=== PATIENT | female | born 1965 | race Caucasian/White ===

== ENCOUNTER 2019-12-31 13:15 | Outpatient (REF) | payer OTHER, SELFPAY ==
[2019-12-31 13:42] LABS: COVID-19 Test Negative (Negative)
== END 2019-12-31 13:16 | disposition home or self-care (01) ==
LOC: HO.LAB 13:15
PROVIDERS: PCP Family Medicine; Visit Provider Internal Medicine
DX: Z20.828 Contact with and (suspected) exposure to other viral communicable diseases (principal)
CPT/HCPCS: 87635

== ENCOUNTER 2020-01-30 17:41 | Emergency (ER) | payer OTHER, SELFPAY ==
--- NOTE | 2020-01-30 17:44 | ECG_ITS ---
Test Reason : CHEST PAIN Blood Pressure : / mmHG Vent. Rate : 079 BPM Atrial Rate : 079 BPM P-R Int : 156 ms QRS Dur : 080 ms QT Int : 380 ms P-R-T Axes : 068 053 069 degrees QTc Int : 435 ms Normal sinus rhythm Normal ECG When compared with ECG of 01-JUN-2005 17:38, No significant change was found Heart rate has increased Referred By: Generic ED Physician Electronically Signed By:KIMI HONG MD
[2020-01-30 18:59] VITALS: BP 144/91; PULSE 75; RESP 18; TEMP 37.9; O2SAT 100; BMI 23.5
[2020-01-30 20:44] VITALS: BP 187/96; PULSE 74; RESP 16; O2SAT 100
--- NOTE | 2020-01-30 20:44 | ED.ARRPALP ---
HPI - Arrhythmia/Palpitations General Chief Complaint: Arrhythmia/Palpitations Stated Complaint: Palpitations Time Seen by Provider: 01/30/20 20:25 Source: patient Mode of arrival: ambulatory Limitations: no limitations History of Present Illness HPI narrative: Patient comes to emergency room complaining of palpitations, chest discomfort, intermittent. Patient states that she history of palpitations in the past, they usually self resolved, but the moment she is not having the palpitations. Patient states that 1 of her coworkers recently tested positive for COVID-19, patient has been in close contact with her colleague. Patient states she does not feel right. Related Data Allergies Allergy/AdvReac Type Severity Reaction Status Date / Time Penicillins Allergy Anaphylaxis Verified 01/30/20 20:44 Review of Systems Review of Systems: Constitutional : No Weight loss, No Fever, No Chills, No Night Sweats, No Fatigue, No Malaise ENT/Mouth : No Hearing loss, No Ear Pain, No Nasal Congestion, No Sinus Pain, No Hoarseness, No sore throat, No Rhinorrhea, No Swallowing Difficulty Eyes: No Eye Pain, No Swelling, No Redness, No Foreign Body, No Discharge, No Vision Changes Cardiovascular : No Chest Pain, no orthopnea, no edema, patient complaining of palpitations Respiratory : No Cough, No Sputum, No Wheezing, No Smoke Exposure, No Dyspnea Gastrointestinal : No Nausea, No Vomiting, No Diarrhea, No Constipation, No abdominal Pain, No Hematochezia, No Melena Genitourinary : no irregular bleeding, No Dysuria, No Urinary Frequency, No Hematuria, No Urinary Incontinence, No Urgency, No Flank Pain, No Urinary Flow Changes, No Hesitancy Musculoskeletal : No joint pain, No Myalgias, No Joint Swelling Skin : No Skin Lesions, No rash Neuro : No Weakness, No Numbness, No Paresthesias, No Loss of Consciousness, No Dizziness, No Headache Psych : No Anxiety/Panic, No Depression, No SI/HI/AH/VH, No Social Issues, Heme/Lymph: No Bruising, No Bleeding,No Lymphadenopathy Endocrine : No Polyuria, No Polydipsia, No Temperature Intolerance [facility] Social History Social History Smoking Status: Never smoker Use of substances other than those prescribed or required for medical reasons: No Advance Directives: No Advance Directives Information Provided: Yes Physical Exam Vital Signs: Vital Signs: Last Vital Signs Temp 100.2 F 01/30/20 18:59 Pulse 74 01/30/20 20:44 Resp 16 01/30/20 20:44 BP 187/96 H 01/30/20 20:44 Pulse Ox 100 01/30/20 20:44 Body Mass Index 23.5 Appearance: Alert. Oriented X3. No acute distress. Eyes: Pupils equal, round and reactive to light. ENT: Pharynx normal. Neck: Normal inspection. Neck supple. No lymph nodes noted. No crepitus CVS: Normal heart rate and rhythm. Pulses normal. Normal S1 and S2 Respiratory: No respiratory distress. Breath sounds normal. No Wheezing. No rales Abdomen: Soft and nontender. No rigidity. No distention. good BS x4 Skin: Skin warm and dry. Normal skin color. Normal skin turgor. Extremities: No lower extremity edema. No lower extremity edema. No Lacerations. No Rash Neuro: Oriented X 3. No motor deficit. No sensory deficit. Moving all extermities. No slurred speech. Course Course Course Narrative: I discussed the labs and EKG with the patient, patient will likely need a Holter monitor if she if she continues having palpitations. Patient was tested for COVID-19, results will be available within 72 hours MDM - Arrhythmia/Palpitations Lab Data Result diagrams: 01/30/20 20:57 01/30/20 20:57 Labs: Lab Results 01/30/20 01/30/20 01/30/20 Range/Units 20:57 20:57 20:57 WBC 8.9 (4.8-10.8) X10*3/uL RBC 4.18 L (4.20-5.50) X10*6/uL Hgb 13.1 (12.0-16.0) g/dl Hct 38.6 (37-47) % MCV 92.3 (80-98) fL MCH 31.3 (27.0-33.0) pg MCHC 33.9 (31.0-35.0) g/dl RDW 12.7 (11.0-16.0) % Plt Count 239 (160-400) X10*3/uL MPV 10.3 (9.4-12.3) fL Immature Gran % (Auto) 0.2 (0.0-0.4) % Neut % (Auto) 59.6 (45-73) % Lymph % (Auto) 28.0 (20-40) % Hopkins % (Auto) 6.9 (2-11) % Eos % (Auto) 4.6 H (0-4) % Baso % (Auto) 0.7 (0-2) % Lymph # (Auto) 2.5 (1.2-4.9) X10*3/uL Hopkins # (Auto) 0.6 (0.1-1.2) X10*3/uL Eos # (Auto) 0.4 (0.0-0.4) X10*3/uL Baso # (Auto) 0.1 (0.0-0.2) X10*3/uL Abs Immat Gran (auto) 0.02 (0.00-0.03) X10*3/uL Absolute Neuts (auto) 5.3 (2.0-8.3) X10*3/uL Absolute Nucleated RBC 0.000 (0.0-0.012) X10*3/uL Nucleated RBC % (auto) 0.0 (0.0-0.2) /100WBC Sodium 140 (135-145) mmol/L Potassium 3.6 (3.3-5.1) mmol/l Chloride 103 (96-108) mmol/L Carbon Dioxide 29 (22-29) mmol/L Anion Gap 12 (12-20) BUN 14 (9-16) mg/dL Creatinine 0.89 (0.5-1.4) mg/dL Estim Creat Clear Calc 71.8 Estimated GFR > 60 Random Glucose 78 (60-115) mg/dL Calcium 8.8 (8.4-10.2) mg/dL Total Bilirubin 0.6 (0.0-1.0) mg/dL Direct Bilirubin 0.2 (0.0-0.5) mg/dL AST 32 H (5-31) U/L ALT 29 (0-31) U/L Alkaline Phosphatase 86 (39-117) U/L Troponin I High Sens < 3.5 (<3.5-17.0) ng/L Total Protein 7.7 (6.5-8.0) g/dL Albumin 4.6 (3.5-5.0) g/dL TSH 2.27 (0.32-4.0) mIU/mL ECG Data Attestation: I personally reviewed and interpreted this ECG as follows: (Sinus rhythm heart rate 79, no ST wave elevations or depressions, no T-wave inversions, QTC 135) Discharge Plan Discharge Clinical Impression: Palpitations, Acute viral syndrome Patient Disposition: Home, Self-Care Instructions: Viral Syndrome (ED), Heart Palpitations (ED) Additional Instructions: Please follow-up with your primary care physician, you may need a Holter monitor study. You were tested for COVID-19, your results will be available within 72 hours, until you get your lab results, please to not return to work.
[2020-01-30 21:04] LABS: MANUAL DIFF FLAG NO
[2020-01-30 21:05] LABS: Basophils Absolute Auto 0.1 X10*3/uL (0.0-0.2); Basophils Percent Auto 0.7 % (0-2); Eosinophils Absolute Auto 0.4 X10*3/uL (0.0-0.4); Eosinophils Percent Auto 4.6 % (0-4); Hematocrit 38.6 % (37-47); Hemoglobin 13.1 g/dl (12.0-16.0); Imm Gran Abs Auto 0.02 X10*3/uL (0.00-0.03); Imm Gran Pct Auto 0.2 % (0.0-0.4); Lymphocytes Absolute Auto 2.5 X10*3/uL (1.2-4.9); Mean Corpuscular HGB Conc 33.9 g/dl (31.0-35.0); Mean Corpuscular Hemoglobin 31.3 pg (27.0-33.0); Mean Corpuscular Volume 92.3 fL (80-98); Mean Platelet Volume 10.3 fL (9.4-12.3); Monocytes Absolute Auto 0.6 X10*3/uL (0.1-1.2); Monocytes Percent Auto 6.9 % (2-11); Neutrophils Absolute Auto 5.3 X10*3/uL (2.0-8.3); Neutrophils Percent Auto 59.6 % (45-73); Platelet Count 239 X10*3/uL (160-400); Red Blood Count 4.18 X10*6/uL (4.20-5.50); Red Cell Distribution Width 12.7 % (11.0-16.0); White Blood Count 8.9 X10*3/uL (4.8-10.8)
[2020-01-30 21:37] LABS: Alanine Aminotransferase 29 U/L (0-31); Albumin Level 4.6 g/dL (3.5-5.0); Alkaline Phosphatase 86 U/L (39-117); Anion Gap 12 (12-20); Aspartate Amino Transferase 32 U/L (5-31); Bilirubin Direct 0.2 mg/dL (0.0-0.5); Bilirubin Total 0.6 mg/dL (0.0-1.0); Blood Urea Nitrogen 14 mg/dL (9-16); Calcium 8.8 mg/dL (8.4-10.2); Carbon Dioxide 29 mmol/L (22-29); Chloride 103 mmol/L (96-108); Creatinine Clr Calc Pharmacy 71.8; Estimated Glomerular Filt Rate > 60; Glucose Random 78 mg/dL (60-115); Potassium 3.6 mmol/l (3.3-5.1); Sodium 140 mmol/L (135-145); Total Protein 7.7 g/dL (6.5-8.0)
[2020-01-30 21:40] LABS: Troponin-I High Sensitivity < 3.5 ng/L (<3.5-17.0)
[2020-01-30 21:59] LABS: TSH reflex Free T4 2.27 mIU/mL (0.32-4.0)
== END 2020-01-30 23:04 | disposition home or self-care (01) ==
PROVIDERS: Emergency Provider Emergency Medicine; PCP Family Medicine
DX: B34.9 Viral infection, unspecified (principal); R00.2 Palpitations; Z20.828 Contact with and (suspected) exposure to other viral communicable diseases
CPT/HCPCS: 36415; 80048; 80076; 84443; 84484; 85025; 93005; 99283; 99284; U0003

== ENCOUNTER 2020-02-03 07:31 | Outpatient (REF) | payer OTHER, SELFPAY | END 2020-02-03 07:32 | disposition home or self-care (01) | LOC: HO.LAB 07:31 | PROVIDERS: PCP Family Medicine; Visit Provider Internal Medicine | DX: Z20.828 Contact with and (suspected) exposure to other viral communicable diseases (principal) | CPT/HCPCS: C9803; U0003 ==

== ENCOUNTER 2020-06-06 14:03 | Emergency (ER) | payer OTHER, SELFPAY ==
--- NOTE | ~2020-06-06 | XR_ITS ---
EXAMINATION: XR FOOT, RIGHT CLINICAL INFORMATION: Wound of the right great toe. Evaluate for osteomyelitis. COMPARISON: None TECHNIQUE: AP, lateral, and oblique views of the right foot. FINDINGS: There is no fracture or dislocation. Alignment is anatomic. Joint spaces are maintained. No osseous erosions. No focal soft tissue abnormality identified. No soft tissue gas. No radiopaque foreign body. XR/XR foot RT min 3V IMPRESSION: No acute abnormality. No osseous erosion.
[2020-06-06 14:12] VITALS: BP 140/70; PULSE 80; RESP 18; TEMP 36.6; O2SAT 100; BMI 23.5
--- NOTE | 2020-06-06 14:36 | ED.GENADULT ---
HPI - General Adult General Chief complaint: Extremity Injury, Lower Stated complaint: WOUND CHECK Time Seen by Provider: 06/06/20 14:15 Source: patient Mode of arrival: ambulatory Limitations: no limitations History of Present Illness HPI narrative: Patient woke up 05/26 with right great toe pain and swelling. She tells me she has a h/o ingrown nails. Had been manipulating the day prior. Woke up with wound noted medial to the wound bed with erythema and pain. on 06/02 went to aircraft rigging and controls mechanic who removed part of the nail and placed patient on cipro 500mg BID which she has been taking since 06/03. She tells me initially she had some erythema proximal to the toe but feels like the cipro helped this. However, increasing pain, feels like wound is not healed and concerned for underlying infection. Denies fevers/chills/numbness/tingling. Taking motrin/APAP for pain at home. Related Data Previous Rx's Medication Instructions Recorded doxycycline monohydrate 100 mg PO BID #14 cap 06/06/20 Allergies Allergy/AdvReac Type Severity Reaction Status Date / Time Penicillins Allergy Anaphylaxis Verified 01/30/20 20:44 Review of Systems Review of Systems: Yes all other systems are reviewed and are negative Constitutional: Constitutional: Reports no additional constitutional complaints, Denies body ache(s), Denies chills, Denies fever(s), Denies headache(s) and Denies weakness Eyes: Eyes: Reports no additional eye complaints and Denies change in vision ENT: Reports system reviewed and no additional complaints, except as documented, Denies dizziness, Denies headache(s), Denies nasal congestion, Denies nasal discharge and Denies neck pain Cardiovascular: Cardiovascular: Reports no additional cardiovascular complaints, Denies chest pain, Denies leg edema and Denies dyspnea Respiratory: Respiratory: Reports no additional respiratory complaints, Denies cough and Denies dyspnea Gastrointestinal: Gastrointestinal: Reports no additional gastrointestinal complaints, Denies abdominal pain, Denies diarrhea, Denies nausea and Denies vomiting Genitourinary: Genitourinary: Reports no additional female genitourinary complaints and Denies urinary incontinence Musculoskeletal: Musculoskeletal: Reports no additional musculoskeletal complaints, Denies back pain, Denies arthralgias, Denies joint swelling, Denies neck pain, Denies numbness and Denies tingling Integumentary/Breasts: Skin/Breast: Reports system reviewed and no additional complaints, except as docu and Denies rash Neurologic: Reports system reviewed and no additional complaints, except as documented, Denies Abnormal speech present, Denies dizziness, Denies headache(s), Denies numbness, Denies tingling and Denies weakness PMFSH Past Medical History Medical History (Updated 06/06/20 @ 15:14 by Milena Phelps NP) Osteomyelitis of spine Social History Social History Smoking Status: Never smoker Advance Directives: No Advance Directives Information Provided: No Physical Exam Vital Signs: Vital Signs: Last Vital Signs Temp 97.9 F 06/06/20 14:12 Pulse 80 06/06/20 14:12 Resp 18 06/06/20 14:12 BP 140/70 H 06/06/20 14:12 Pulse Ox 100 06/06/20 14:12 Body Mass Index 23.5 Const: General: cooperative, healthy appearing, comfortable and no acute distress Orientation/consciousness: patient oriented x3 Limitations: no limitations HENMT: Head: Yes normal to inspection Ears: hearing grossly normal bilaterally General nose exam: Normal external nose present Face and sinus: Yes normal facial exam Mouth: Normal oral and palatal mucosa present Throat: Yes posterior oropharynx normal Eyes: General: appearance normal, both eyes and all related structures Pupils: Equal, round and reactive pupils present Neck: Neck: Yes normal visual inspection Chest: Chest palpation & inspection: normal inspection of the chest Resp: Effort & Inspection: normal respiratory effort Auscultation: clear to auscultation bilaterally Cardio: Rate: regular rate Rhythm: regular rhythm Peripheral pulses: Peripheral pulses 2+ throughout GI: Inspection: Yes normal to inspection Palpation (GI): Soft to palpation and nontender Auscultation: normal bowel sounds Back/Spine/Pelvis: Thoracic/Lumbar Spine: thoracic and lumbar spine normal to inspection Skin: General skin exam: no rashes or lesions noted Neuro: General: patient oriented x3, no focal motor deficits and normal sensation to monofilament Cranial nerves: Yes Equal, round and reactive pupils present Cognition (Neuro): normal cognition Speech: No Abnormal speech present Gait exam (Neuro): Normal gait present Motor exam (neuro): 5/5 motor strength present throughout Extrem: General: Yes normal to inspection Ankle/foot/toe images: 1. to the medial nailbed there is an absent nail, local tenderness/swelling and crusting. No drainage or fluctuance. Palpable DP/PT pulses. NO erythema or tenderness over dorsal or volar foot with FROM Course Course Course Narrative: 54 yo female here with right 1st great toe pain/swelling and wound. Patient had partial ingrown toenail removed ~5 days ago by aircraft rigging and controls mechanic and is currently on cipro. Here with pain, does not feel like wound is healing. On exam has local erythema, swelling and tenderness to medial nailbed with NO fluctuance/drainage or induration. No surrounding erythema/tenderness/warmth or swelling. Will check x-ray. 1515-Xray shows no bony abnormality, gas or air. While patient is concerned that wound is not healing it does not sound like it is worsening. No fevers, chills or systemic signs/symptoms of infection. No fluctance or induration with concern for underlying abscess. The toenail that remains is not ingrown. She tells me she is leaving on vacation this week and wants it to be improved before she leaves. We discussed her doing warm soaks at home, optimizing wound care with topical antibiotic ointment/xeroform and dressings. We discussed changing antibiotics and she does have a severe allergy to PCN limiting several choices. Shared decision making to change to doxycycline. Reviewed worrisome signs/symptoms with patient and when to return to ED. Comfortable with dsicharge home. Medical Decision Making Imaging Data foot xray: Attestation: I personally reviewed and interpreted this imaging study as follows: Radiologist's impression: EXAMINATION: XR FOOT, RIGHT CLINICAL INFORMATION: Wound of the right great toe. Evaluate for osteomyelitis. COMPARISON: None TECHNIQUE: AP, lateral, and oblique views of the right foot. FINDINGS: There is no fracture or dislocation. Alignment is anatomic. Joint spaces are maintained. No osseous erosions. No focal soft tissue abnormality identified. No soft tissue gas. No radiopaque foreign body. XR/XR foot RT min 3V IMPRESSION: No acute abnormality. No osseous erosion. Discharge Plan Discharge Clinical Impression: Infected nailbed of toe Qualifiers: Laterality: right Qualified Code(s): L03.031 - Cellulitis of right toe Patient Disposition: Home, Self-Care Instructions: Ingrown Nail (ED) Additional Instructions: Warm soaks with epsom salts 4 times daily Call your aircraft rigging and controls mechanic tomorrow as discussed Return for fevers >100.4, worsening redness/swelling Prescriptions: New doxycycline monohydrate 100 mg capsule 100 mg PO BID Qty: 14 RF: 0 Stand Alone Forms: Work/School Release Interventions: ED Discharge Assessment Last Done: 06/06/20 15:20 Discharge Date/Time: 06/06/20 15:23
== END 2020-06-06 15:23 | disposition home or self-care (01) ==
PROVIDERS: Emergency Provider Emergency Medicine; PCP Family Medicine
DX: L03.031 Cellulitis of right toe (principal); M79.674 Pain in right toe(s)
CPT/HCPCS: 73630; 99283

== ENCOUNTER 2021-01-10 07:42 | Emergency (ER) | payer OTHER, SELFPAY ==
[2021-01-10 07:47] VITALS: BP 161/100; PULSE 76; RESP 18; TEMP 36.3; O2SAT 100; BMI 25.0
--- NOTE | 2021-01-10 08:01 | ED_ITS ---
HPI - General Adult General Chief complaint: Skin/Abscess/Foreign Body Stated complaint: Pill stuck in throat Time Seen by Provider: 01/10/21 07:59 Source: patient Mode of arrival: ambulatory Limitations: no limitations History of Present Illness HPI narrative: 55-year-old female came in for evaluation of possible foreign body stuck in the throat. Patient thinks that a beak calcium pill stuck in her throat since this morning, patient is able to swallow saliva, able to swallow sips of water, able to speak full sentence. Related Data Previous Rx's Medication Instructions Recorded doxycycline monohydrate 100 mg 100 mg PO BID #14 cap 06/06/20 capsule omeprazole magnesium 20 mg 20 mg PO BID #60 tab 01/10/21 tablet,delayed release (Prilosec OTC) Allergies Allergy/AdvReac Type Severity Reaction Status Date / Time Penicillins Allergy Anaphylaxis Verified 01/30/20 20:44 Review of Systems Review of Systems: All other systems are reviewed and are negative Constitutional: Reports as per HPI and Reports no additional constitutional complaints Eyes: Reports as per HPI and Reports no additional eye complaints Reports system reviewed and no additional complaints, except as documented Cardiovascular: Reports as per HPI and Reports no additional cardiovascular complaints Respiratory: Reports as per HPI and Reports no additional respiratory complaints Gastrointestinal: Reports as per HPI and Reports no additional gastrointestinal complaints Genitourinary: Reports no additional female genitourinary complaints Musculoskeletal: Reports no additional musculoskeletal complaints Skin/Breast: Reports system reviewed and no additional complaints, except as docu Psychiatric: Reports no additional psychiatric complaints Endocrine: Reports no additional endocrine complaints Hematologic/Lymphatic: Reports no additional hematologic/lymphatic complaints Allergic/Immunologic: Reports no additional allergic/immunologic complaints Reports system reviewed and no additional complaints, except as documented and Reports Abnormal speech present [facility] Past Medical History Medical History Osteomyelitis of spine Social History Social History Patient Tobacco Use Status: Never used Tobacco Use of substances other than those prescribed or required for medical reasons: No Advance Directives: No Advance Directives Information Provided: No Physical Exam Vital Signs: Vital Signs: Last Vital Signs Temp 97.3 F 01/10/21 07:47 Pulse 74 01/10/21 08:02 Resp 18 01/10/21 08:02 BP 161/100 H 01/10/21 07:47 Pulse Ox 100 01/10/21 08:02 Body Mass Index 25.0 Vital signs have been reviewed as appeared to be correct. Blood pressure normal. Heart rate normal. Respiration rate normal. Temperature normal. Oxygen saturation normal. Appearance: Alert. Oriented X3. No acute distress. Head: Normal external exam. Normocephalic. Atraumatic. No Harrison signs noted. No raccoon eyes noted Eyes: PERRLA. EOMI. Conjunctiva and sclera normal. Eyelids normal. ENT: TM's Normal. Pharynx normal. Uvula midline. Moist mucous membranes. No trismus noted. No drooling noted. No muffled voice noted. Neck: Normal inspection. Neck supple. FROM. No adenopathy. Thyroid Normal. No meningeal signs. No neck mass noted. CVS: Normal heart rate and rhythm. Heart sound normal. No murmurs noted. Pulses normal throughout. Respiratory: No respiratory distress. Painless inspiration. Breath sounds normal. No wheezes/rales/rhonchi noted. Chest nontender. No accessory muscle usage noted or decreased air movement noted. Abdomen: Soft and nontender. Bowel sounds normal in all 4 quadrants. No distention noted. No organomegaly noted. No visible injury noted. Back: No CVA tenderness. Full range of motion noted. Skin: Skin warm and dry. Normal skin color. Normal skin turgor. No rashes/lesions/lacerations noted. Extremities: No lower extremity edema. Extremities exhibit normal range of motion. Extremities nontender. Neuro: Oriented X 3. Cranial nerve exam: II-XII are grossly intact No motor deficit. No sensory deficit. Reflexes normal. Course Course Course Narrative: Assessment and plan. 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 Feels better after using GI cocktail and Pepcid, patient will be prescribed Prilosec and refer her to GI for possible esophagitis. Patient at low risk for cardiac event, patient declined doing any further testing to make sure chest pain is not cardiac related and EKG was declined also. Discharge Plan Discharge Clinical Impression: Esophagitis, acute Patient Disposition: Home, Self-Care Instructions: Esophagitis (ED) Prescriptions: New omeprazole magnesium [Prilosec OTC] 20 mg tablet,delayed release (DR/EC) 20 mg PO BID Qty: 60 RF: 0 No Action doxycycline monohydrate 100 mg capsule 100 mg PO BID Qty: 14 RF: 0 Referrals: Jane Ramsay MD [Physician] - 2 days Stand Alone Forms: Work/School Release
[2021-01-10 08:02] VITALS: PULSE 74; RESP 18; O2SAT 100
[2021-01-10] MEDS: Magnesium Hydrox/Alum Hydrox 30 ML ORAL.SUSP PO (08:12)
[2021-01-10] MEDS: Lidocaine HCl Viscous 2 % 15 ML SOLUTION MUCOUS MEM (08:12)
[2021-01-10] MEDS: Famotidine 20 MG TABLET PO (08:12)
--- NOTE | 2021-01-10 08:14 | PC.NURSE ---
pt alert and oriented. pt states she took her morning meds this morning and since taking them she feels like one of the pill is stuck in her throat. she also states she ended up throwing up all the other pills because she started gaging. no other symptoms reported.
[2021-01-10 09:41] VITALS: BP 150/94; PULSE 68; RESP 20; O2SAT 100
--- NOTE | 2021-01-10 09:44 | PC.NURSE ---
pt medically cleared for discharge. discharge summary given and explained. vss, alert and oriented.
== END 2021-01-10 09:46 | disposition home or self-care (01) ==
PROVIDERS: Emergency Provider Emergency Medicine
DX: K20.90 Esophagitis, unspecified without bleeding (principal)
CPT/HCPCS: 99283; 99284

== ENCOUNTER 2023-08-22 09:57 | Emergency (ER) | payer OTHER, SELFPAY ==
--- NOTE | ~2023-08-22 | XR_ITS ---
EXAMINATION: XR CHEST 2 VIEW CLINICAL INFORMATION: Cough and shortness of breath COMPARISON: None TECHNIQUE: PA and lateral views of the chest obtained. FINDINGS: The lungs are clear. There are no pleural effusions. The cardiomediastinal silhouette is normal. XR/XR chest 2V IMPRESSION: No acute cardiopulmonary disease.
--- NOTE | ~2023-08-22 | CT_ITS ---
EXAMINATION: CT ANGIOGRAM OF THE CHEST WITH AND WITHOUT CONTRAST (CT PULMONARY ANGIOGRAM FOR PE) CLINICAL INFORMATION: Reason for Exam dyspnea, shortness of breath, R sided chest pain COMPARISON: Chest x-ray August 22, 2023 TECHNIQUE: Prior to contrast administration, noncontrast localization images were obtained. Subsequently, multidetector volumetric imaging was performed from the thoracic inlet to below the diaphragms following the administration of 65 mL Omnipaque 350 intravenous contrast. No contrast reaction reported Sagittal, coronal, and MIP oblique sagittal reformatted images were obtained on the CT workstation, uploaded to PACS, and reviewed. This CT examination was performed using dose optimization techniques as appropriate, variously including the following: *Automated exposure control *Adjustment of mA and/or kV according to patient size (this includes techniques or standardized protocols for targeted exams where dose is matched to indication/reason for exam; i.e. extremities or head) *Use of iterative reconstruction technique Total exam dose-length product 208 mGy-cm FINDINGS: QUALITY OF STUDY/CONTRAST BOLUS: Satisfactory. PULMONARY ARTERIES: No pulmonary emboli. THORACIC AORTA: No aneurysm. LUNG: There is linear and patchy groundglass airspace opacity in the right middle lobe. This is likely inflammatory or infectious in etiology. No suspicious lung nodules. Central bronchial airways are open. PLEURA: No pleural effusion or pneumothorax. MEDIASTINUM: Normal heart size. No pericardial effusion. No hilar or mediastinal lymphadenopathy. No evidence of septal bowing or right heart strain. CORONARY ARTERY CALCIFICATION: None visualized on this study. CHEST WALL/AXILLA: No axillary or internal mammary lymphadenopathy. OSSEOUS STRUCTURES: No acute or suspicious osseous abnormality. UPPER ABDOMEN: Unremarkable. No reflux of contrast into the hepatic veins to suggest elevated right heart pressures. CT/CT angio chest PE protocol IMPRESSION: 1. No evidence of pulmonary embolism. 2. Patchy groundglass airspace opacity in the right middle lobe. This is likely inflammatory or infectious in etiology. VTE: negative.
--- NOTE | 2023-08-22 09:59 | ECG_ITS ---
Test Reason : chest pain Blood Pressure : / mmHG Vent. Rate : 070 BPM Atrial Rate : 070 BPM P-R Int : 142 ms QRS Dur : 074 ms QT Int : 406 ms P-R-T Axes : 062 035 057 degrees QTc Int : 438 ms Normal sinus rhythm Low voltage QRS Borderline ECG When compared with ECG of 30-JAN-2020 17:49, No significant change was found Referred By: Generic ED Physician Electronically Signed By:BEATRICE MORALES MD
[2023-08-22 10:12] VITALS: BP 135/86; PULSE 69; RESP 16; TEMP 36.6; O2SAT 95; BMI 26.6
[2023-08-22 10:55] LABS: MANUAL DIFF FLAG NO
[2023-08-22 11:03] LABS: Basophils Percent Auto 0.3 % (0-2); Eosinophils Absolute Auto 0.1 X10*3/uL (0.0-0.4); Eosinophils Percent Auto 1.4 % (0-4); Hematocrit 42.7 % (37.0-47.0); Hemoglobin 14.7 g/dl (12.0-16.0); Imm Gran Abs Auto 0.03 X10*3/uL (0.00-0.03); Imm Gran Pct Auto 0.3 % (0.0-0.4); Lymphocytes Absolute Auto 1.1 X10*3/uL (1.2-4.9); Lymphocytes Percent Auto 12.8 % (20-40); Mean Corpuscular HGB Conc 34.4 g/dl (31.0-35.0); Mean Corpuscular Hemoglobin 30.5 pg (27.0-33.0); Mean Corpuscular Volume 88.6 fL (80.0-98.0); Mean Platelet Volume 10.3 fL (9.4-12.3); Monocytes Absolute Auto 0.3 X10*3/uL (0.1-1.2); Monocytes Percent Auto 3.2 % (2-11); Neutrophils Absolute Auto 7.1 x10*3/uL (2.0-8.3); Platelet Count 233 X10*3/uL (160-400); Red Blood Count 4.82 X10*6/uL (4.20-5.50); Red Cell Distribution Width 12.8 % (11.0-16.0); White Blood Count 8.6 X10*3/uL (4.8-10.8)
[2023-08-22 11:18] LABS: Anion Gap 11 (12-20); Blood Urea Nitrogen 13 mg/dL (9-16); Calcium 9.2 mg/dL (8.4-10.2); Carbon Dioxide 28 mmol/L (22-29); Chloride 104 mmol/L (96-108); Creatinine Clr Calc Pharmacy 88.3; Estimated Glomerular Filt Rate > 60; Glucose Random 102 mg/dL (60-115); Potassium 4.3 mmol/L (3.3-5.1); Sodium 139 mmol/L (135-145)
[2023-08-22 11:19] VITALS: BP 143/99; PULSE 72; RESP 18; TEMP 36.6; O2SAT 99
--- NOTE | 2023-08-22 11:20 | ED.CHESTPAIN ---
HPI - Chest Pain General Chief Complaint: Chest Pain Stated Complaint: CP Time Seen by Provider: 08/22/23 11:17 Source: patient and old records reviewed Mode of arrival: ambulatory Limitations: no limitations History of Present Illness ED Provider: ROCKY JUNIOR narrative: 57 yo female s/p myxoma removal 2009, prior osteomyelits iatrogenic of the spine, works as [employer] comes in after URI last week and now having chest tightness along with dyspnea mostly R sided pain since last night with persistent cough and feelig like something will not clear on that side. She notes she has tried albuterol and breo without real relief. She took negative covid tests at home. No recent travel or known exposures. This morning she woke up feeling achy, with n/v and headache and felt sweaty. MD complaint: chest pain Onset (ago): day(s) (last night) Timing of current episode: constant Prior episodes: Yes Onset: during rest Pain location: right chest Pain radiation: none Severity: moderate Quality: aching Relieving factors: nothing Exacerbating factors: other (coughing, movement) Context: recent illness Associated symptoms: nausea, diaphoresis, dyspnea and cough Treatment prior to arrival: other (bronchodilators) Related Data Previous Rx's ?Medication ?Instructions ?Recorded doxycycline monohydrate 100 mg 100 mg PO BID #14 caps 06/06/20 capsule omeprazole magnesium 20 mg 20 mg PO BID #60 tabs 01/10/21 tablet,delayed release (Prilosec OTC) azithromycin 250 mg tablet 250 mg PO DAILY 4 days #4 tabs 08/22/23 prednisone 20 mg tablet 40 mg (2 x 20 mg) PO DAILY 4 days 08/22/23 #8 tabs Allergies Allergy/AdvReac Type Severity Reaction Status Date / Time Penicillins Allergy Anaphylaxis Verified 08/22/23 10:16 Review of Systems Review of Systems: Constitutional : No Weight loss, No Fever, pos Chills ENT/Mouth : No sore throat, No Rhinorrhea Eyes: No Eye Pain, No Swelling Cardiovascular : pos Chest Pain, pos SOB, no Dyspnea on Exertion, No Orthopnea, No Edema, No Palpitations Respiratory : pos Cough, No Sputum Gastrointestinal : pos Nausea, No Vomiting, No Diarrhea, No abdominal Pain, No Hematochezia, No Melena Genitourinary : No Dysuria, No Urinary Frequency Musculoskeletal : No joint pain, No Myalgias, No Joint Swelling Skin : No Skin Lesions, No rash Neuro : No Weakness, No Numbness, No Dizziness, pos Headache Psych : No Anxiety/Panic, No Depression Heme/Lymph: No Bruising, No Lymphadenopathy Endocrine : No Polyuria, No Polydipsia All other systems reviewed and are negative [facility] Past Medical History Attestation statement: The following information was validated with the patient. Source: old records reviewed Medical History Myxoma Osteomyelitis of spine Social History Social History Patient Tobacco Use Status: Never used Tobacco Advance Directives: No Advance Directives Information Provided: No Physical Exam Vital Signs: Vital Signs: Last Vital Signs Temp 97.9 F 08/22/23 11:19 Pulse 75 08/22/23 14:00 Resp 14 08/22/23 14:00 BP 138/86 08/22/23 14:00 Pulse Ox 100 08/22/23 14:00 O2 Del Method Room Air 08/22/23 14:00 BMI result Body Mass Index 26.6 Appearance: Alert. Oriented X3. No acute distress. Eyes: Pupils equal, round and reactive to light. ENT: Pharynx normal. Neck: Normal inspection. Neck supple. CVS: Normal heart rate and rhythm. Pulses normal. Respiratory: No respiratory distress. Breath sounds normal. Abdomen: Soft and non-tender. Skin: Skin warm and dry. Normal skin color. Normal skin turgor. Extremities: No lower extremity edema. No calf ttp Neuro: Oriented X 3. No motor deficit. No sensory deficit. Medications Administered Generic Name Dose Route Start Last Admin Trade Name Freq PRN Reason Stop Dose Admin Azithromycin 500 mg/ Sodium 250 mls @ 125 mls/hr 08/22/23 14:24 08/22/23 14:49 Chloride IV 08/22/23 16:23 125 mls/hr ONCE ONE Administration Discontinued Medications Generic Name Dose Route Start Last Admin Trade Name Freq PRN Reason Stop Dose Admin Dexamethasone Sodium Phosphate 6 mg 08/22/23 14:24 08/22/23 14:49 Dexamethasone Sod Phosphate 4 Mg/Ml Vial IVPUSH 08/22/23 14:25 6 mg ONCE ONE Administration Sodium Chloride 1,000 mls @ 999 mls/hr 08/22/23 11:28 08/22/23 13:09 Ns IV 08/22/23 12:28 Infused .Q1H1M ONE Infusion Iohexol 65 ml 08/22/23 12:15 08/22/23 12:15 Iohexol 350 Mg/Ml 75 Ml Infus..Btl IV 08/22/23 12:16 65 ml ONCE ONE Administration Ketorolac Tromethamine 15 mg 08/22/23 13:14 08/22/23 13:25 Ketorolac Tromethamine 15 Mg/Ml Vial IVPUSH 08/22/23 13:15 15 mg ONCE ONE Administration Ondansetron HCl 4 mg 08/22/23 13:14 08/22/23 13:25 Ondansetron Hcl 4 Mg/2 Ml Vial IVPUSH 08/22/23 13:15 4 mg ONCE ONE Administration Medical Decision Making Medical Decision Making [facility] Narrative: 57 yo female s/p myxoma removal 2009, prior osteomyelits iatrogenic of the spine, works as [employer] here with c/o just not feeling well with URI symptoms and feeling foggy she also has vague R sided chest pain at this time will need basic labs, EKG CTA of chest for VTE/mass IVF, tick panel, inflammatory panel and resp panel. Possible inflammatory workup, VTE possible, atypical for ACS Differential Diagnosis Differential Diagnoses: The differential diagnosis associated with the presentation includes mass, viral panel, inflammatory condition Admission/Observation Consideration of admission/observation: Escalation of care including admission/observation considered feels much better VS reassuring, no hypoxia can be managed as outpatient Lab Data [facility] Lab Attestation statement: I reviewed the patient's lab results. 08/22/23 10:49 08/22/23 10:49 Labs: Lab Results 08/22/23 08/22/23 08/22/23 Range/Units 10:49 11:42 11:43 WBC 8.6 (4.8-10.8) X10*3/uL RBC 4.82 (4.20-5.50) X10*6/uL Hgb 14.7 (12.0-16.0) g/dl Hct 42.7 (37.0-47.0) % MCV 88.6 (80.0-98.0) fL MCH 30.5 (27.0-33.0) pg MCHC 34.4 (31.0-35.0) g/dl RDW 12.8 (11.0-16.0) % Plt Count 233 (160-400) X10*3/uL MPV 10.3 (9.4-12.3) fL Immature Gran % (Auto) 0.3 (0.0-0.4) % Neut % (Auto) 82.0 H (45-73) % Lymph % (Auto) 12.8 L (20-40) % [place] % (Auto) 3.2 (2-11) % Eos % (Auto) 1.4 (0-4) % Baso % (Auto) 0.3 (0-2) % Lymph # (Auto) 1.1 L (1.2-4.9) X10*3/uL [place] # (Auto) 0.3 (0.1-1.2) X10*3/uL Eos # (Auto) 0.1 (0.0-0.4) X10*3/uL Baso # (Auto) 0.0 (0.0-0.2) X10*3/uL Abs Immat Gran (auto) 0.03 (0.00-0.03) X10*3/uL Absolute Neuts (auto) 7.1 (2.0-8.3) x10*3/uL Absolute Nucleated RBC 0.000 (0.0-0.012) X10*3/uL Nucleated RBC % (auto) 0.0 (0.0-0.2) /100WBC ESR 11 (0-20) MM/HR Sodium 139 (135-145) mmol/L Potassium 4.3 (3.3-5.1) mmol/L Chloride 104 (96-108) mmol/L Carbon Dioxide 28 (22-29) mmol/L Anion Gap 11 L (12-20) BUN 13 (9-16) mg/dL Creatinine 0.77 (0.5-1.4) mg/dL Estim Creat Clear Calc 88.3 Estimated GFR > 60 Random Glucose 102 (60-115) mg/dL Lactic Acid 0.9 (0.5-2.0) mmol/L Calcium 9.2 (8.4-10.2) mg/dL Total Bilirubin 0.5 (0.0-1.0) mg/dL Direct Bilirubin 0.2 (0.0-0.5) mg/dL AST 22 (5-31) U/L ALT 19 (0-31) U/L Alkaline Phosphatase 102 (39-117) U/L Troponin I High Sens < 2.7 (<3.5-17.0) ng/L C-Reactive Protein 0.15 (< or = 0.50) mg/dL B-Natriuretic Peptide 72 (<100) pg/mL Total Protein 8.3 H (6.5-8.0) g/dL Albumin 4.4 (3.5-5.0) g/dL Procalcitonin < 0.02 ng/mL Respiratory Panel [place] Adenovirus (Rapid PCR) (Not Detect.) B.pert (TEM-PCR) (Not Detect.) B.parapertussis DNA PCR (Not Detect.) C. pneumoniae DNA (PCR) (Not Detect.) Coronavirus OC43 (PCR) (Not Detect.) Coronavirus HKU1 (PCR) (Not Detect.) Coronavirus 229E (PCR) (Not Detect.) Coronavirus NL63 (PCR) (Not Detect.) Human Metapneumovir PCR (Not Detect.) Influenza A (RT-PCR) (Not Detect.) Influenza Type A (PCR) NEGATIVE (Negative) Influenza B (RT-PCR) (Not Detect.) Influenza Type B (PCR) NEGATIVE (Negative) M. pneumoniae (PCR) (Not Detect.) Parainfluenza 1 (PCR) (Not Detect.) Parainfluenza 2 (PCR) (Not Detect.) Parainfluenza 3 (PCR) (Not Detect.) Parainfluenza 4 (PCR) (Not Detect.) RSV (PCR) (Not Detect.) RSV RNA Qual (PCR) NEGATIVE (Negative) Entero/Rhino (PCR) (Not Detect.) SARS-CoV-2 RNA (RT-PCR) NEGATIVE (Negative) 08/22/23 Range/Units 12:32 WBC (4.8-10.8) X10*3/uL RBC (4.20-5.50) X10*6/uL Hgb (12.0-16.0) g/dl Hct (37.0-47.0) % MCV (80.0-98.0) fL MCH (27.0-33.0) pg MCHC (31.0-35.0) g/dl RDW (11.0-16.0) % Plt Count (160-400) X10*3/uL MPV (9.4-12.3) fL Immature Gran % (Auto) (0.0-0.4) % Neut % (Auto) (45-73) % Lymph % (Auto) (20-40) % [place] % (Auto) (2-11) % Eos % (Auto) (0-4) % Baso % (Auto) (0-2) % Lymph # (Auto) (1.2-4.9) X10*3/uL [place] # (Auto) (0.1-1.2) X10*3/uL Eos # (Auto) (0.0-0.4) X10*3/uL Baso # (Auto) (0.0-0.2) X10*3/uL Abs Immat Gran (auto) (0.00-0.03) X10*3/uL Absolute Neuts (auto) (2.0-8.3) x10*3/uL Absolute Nucleated RBC (0.0-0.012) X10*3/uL Nucleated RBC % (auto) (0.0-0.2) /100WBC ESR (0-20) MM/HR Sodium (135-145) mmol/L Potassium (3.3-5.1) mmol/L Chloride (96-108) mmol/L Carbon Dioxide (22-29) mmol/L Anion Gap (12-20) BUN (9-16) mg/dL Creatinine (0.5-1.4) mg/dL Estim Creat Clear Calc Estimated GFR Random Glucose (60-115) mg/dL Lactic Acid (0.5-2.0) mmol/L Calcium (8.4-10.2) mg/dL Total Bilirubin (0.0-1.0) mg/dL Direct Bilirubin (0.0-0.5) mg/dL AST (5-31) U/L ALT (0-31) U/L Alkaline Phosphatase (39-117) U/L Troponin I High Sens (<3.5-17.0) ng/L C-Reactive Protein (< or = 0.50) mg/dL B-Natriuretic Peptide (<100) pg/mL Total Protein (6.5-8.0) g/dL Albumin (3.5-5.0) g/dL Procalcitonin ng/mL Respiratory Panel [place] See Note Adenovirus (Rapid PCR) Not Detected (Not Detect.) B.pert (TEM-PCR) Not Detected (Not Detect.) B.parapertussis DNA PCR Not Detected (Not Detect.) C. pneumoniae DNA (PCR) Not Detected (Not Detect.) Coronavirus OC43 (PCR) Not Detected (Not Detect.) Coronavirus HKU1 (PCR) Not Detected (Not Detect.) Coronavirus 229E (PCR) Not Detected (Not Detect.) Coronavirus NL63 (PCR) Not Detected (Not Detect.) Human Metapneumovir PCR Not Detected (Not Detect.) Influenza A (RT-PCR) Not Detected (Not Detect.) Influenza Type A (PCR) (Negative) Influenza B (RT-PCR) Not Detected (Not Detect.) Influenza Type B (PCR) (Negative) M. pneumoniae (PCR) Not Detected (Not Detect.) Parainfluenza 1 (PCR) Not Detected (Not Detect.) Parainfluenza 2 (PCR) Not Detected (Not Detect.) Parainfluenza 3 (PCR) Detected A (Not Detect.) Parainfluenza 4 (PCR) Not Detected (Not Detect.) RSV (PCR) Not Detected (Not Detect.) RSV RNA Qual (PCR) (Negative) Entero/Rhino (PCR) Not Detected (Not Detect.) SARS-CoV-2 RNA (RT-PCR) Not Detected (Negative) Independent Interpretation I performed an independent interpretation of an: EKG, Plain X-Ray (normal ) and CT Scan (no PE, GGO RML) Interpretation: Rate: 70 Rhythm: NSR [place]: normal Normal P waves. Normal ERIC. lower voltage QRS complex. ST T wave : no ALIYAH, lots of artifact but no ALIYAH or ST depression qTC: 438 prior studies: no acute ischemia The study has been interpreted contemporaneously by me. . Radiology Impression Discussion of test interpretation with radiology: I have reviewed the radiologist's reading. External Record Review External record reviewed: Inpatient record Prescription Management I considered prescription management with: Antibiotic and Other Discharge Plan Discharge Clinical Impression: Parainfluenza infection, Parainfluenza virus pneumonia Patient Disposition: Home, Self-Care Instructions: Pneumonia (ED) Additional Instructions: respiratory pathogen panel tested positive for parainfluenza 3 virus your CTA of chest showed no blood clot but ground glass opacity of right middle lobe EKG, troponin and BNP normal. negative ESR, procalcitonin and CRP, negative lactic acid. pending tests are lyme panel and tickborne disease panel if positive we will call you at home finish antibiotics and steroids - rest and stay hydrated. return for any worsening symptoms or concerns such as confusion, low oxygen below 92%, increased pain or any other concerns. START AZITHROMYCIN TOMORROW CT/CT angio chest PE protocol IMPRESSION: 1. No evidence of pulmonary embolism. 2. Patchy groundglass airspace opacity in the right middle lobe. This is likely inflammatory or infectious in etiology. Prescriptions: New azithromycin 250 mg tablet 250 mg PO DAILY 4 Days Qty: 4 0RF Rx Instructions: start on day 2 of therapy prednisone 20 mg tablet 40 mg PO DAILY 4 Days Qty: 8 0RF No Action doxycycline monohydrate 100 mg capsule 100 mg PO BID Qty: 14 0RF omeprazole magnesium [Prilosec OTC] 20 mg tablet,delayed release (DR/EC) 20 mg PO BID Qty: 60 0RF Stand Alone Forms: Work/School Release Print Language: [place]
[2023-08-22 11:32] LABS: Troponin-I High Sensitivity < 2.7 ng/L (<3.5-17.0)
[2023-08-22] MEDS: 0.9 % Sodium Chloride 1,000 ML 999 ML IV (11:42)
--- NOTE | 2023-08-22 11:45 | PC.NURSE ---
a&ox4. vss and up to date. pt presents to ED w/ intermittent nonradiating sternal chest pain. pt also c/o orthopnea and dyspnea on exertion. no new swelling in LE noted bilaterally. pt also c/o chills/n/v x 1 time. 20gIV placed in the left AC - labs obtained/sent to lab. IVF administered per provider order. pt seen by MD/aware of plan of care at this time. pt sitting upright to promote patent airway. no sob/wob noted. respirations even and unlabored. call grey placed within reach.
[2023-08-22 12:01] LABS: Lactic Acid 0.9 mmol/L (0.5-2.0)
[2023-08-22 12:06] LABS: C Reactive Protein 0.15 mg/dL (< or = 0.50)
[2023-08-22 12:12] LABS: B Type Natriuretic Peptide 72 pg/mL (<100)
[2023-08-22] MEDS: iohexoL 350 MG/ML 75 ML INFUS..BTL 65 ML IV (12:15)
[2023-08-22 12:28] LABS: Influenza A PCR NEGATIVE (Negative); Influenza B PCR NEGATIVE (Negative); Resp Syncy Virus RNA Qual PCR NEGATIVE (Negative); SARS COV2 PCR INHOUSE NEGATIVE (Negative)
[2023-08-22 12:38] LABS: Erythrocyte Sedimentation Rate 11 MM/HR (0-20)
[2023-08-22 12:39] LABS: Alanine Aminotransferase 19 U/L (0-31); Albumin Level 4.4 g/dL (3.5-5.0); Alkaline Phosphatase 102 U/L (39-117); Aspartate Amino Transferase 22 U/L (5-31); Bilirubin Direct 0.2 mg/dL (0.0-0.5); Bilirubin Total 0.5 mg/dL (0.0-1.0); Procalcitonin < 0.02 ng/mL; Total Protein 8.3 g/dL (6.5-8.0)
[2023-08-22] MEDS: ondansetron HCL 4 MG/2 ML VIAL IVPUSH (13:25)
[2023-08-22] MEDS: Ketorolac Tromethamine 15 MG/ML VIAL IVPUSH (13:25)
--- NOTE | 2023-08-22 13:29 | PC.NURSE ---
pt c/o YEBOAH and nausea. provider notified/aware. medication administered per provider order. effectiveness pending.
[2023-08-22 14:00] VITALS: BP 138/86; PULSE 75; RESP 14; O2SAT 100
[2023-08-22 14:13] LABS: Adenovirus PCR Not Detected (Not Detect.); Bordetella parapertussis PCR Not Detected (Not Detect.); Bordetella pertussis PCR Not Detected (Not Detect.); Chlamydia pneumoniae PCR Not Detected (Not Detect.); Coronavirus 229E PCR Not Detected (Not Detect.); Coronavirus HKU1 PCR Not Detected (Not Detect.); Coronavirus NL63 PCR Not Detected (Not Detect.); Coronavirus OC43 PCR Not Detected (Not Detect.); Human metapneumovirus PCR Not Detected (Not Detect.); Influenza A PCR Not Detected (Not Detect.); Influenza B PCR Not Detected (Not Detect.); Mycoplasma pneumoniae PCR Not Detected (Not Detect.); Parainfluenza 1 PCR Not Detected (Not Detect.); Parainfluenza 2 PCR Not Detected (Not Detect.); Parainfluenza 3 PCR Detected (Not Detect.); Parainfluenza 4 PCR Not Detected (Not Detect.); RSV PCR Not Detected (Not Detect.); Rhino/Enterovirus PCR Not Detected (Not Detect.)
[2023-08-22 14:21] LABS: SARS-CoV-2 PCR Not Detected (Not Detect.)
[2023-08-22] MEDS: Azithromycin 500 MG in 0.9 % Sodium Chloride 250 ML 125 MG IV (14:49)
[2023-08-22] MEDS: dexAMETHasone sod phosphate 4 MG/ML VIAL 6 MG IVPUSH (14:49)
--- NOTE | 2023-08-22 14:55 | PC.NURSE ---
pt aware of lab results. precautions signs in place. abx administered per provider order.
[2023-08-22 16:49] VITALS: BP 131/79; PULSE 72; RESP 15; TEMP 36.8; O2SAT 97
[2023-08-22 17:20] VITALS: BP 131/79; PULSE 72; RESP 15; TEMP 36.8; O2SAT 97
[2023-08-23 16:13] LABS: Lyme Abs Screen <0.90 index
[2023-08-24 14:03] LABS: A. Phagocytphilium DNA,RT-PCR NOT DETECTED (NOT DETECTED); Babesia Microti DNA, RT-PCR NOT DETECTED (NOT DETECTED); Borrelia Miyamotoi,DNA RT-PCR NOT DETECTED (NOT DETECTED); E.Chaffeensis DNA RT-PCR NOT DETECTED (NOT DETECTED); Lyme(Borrelia ssp)DNA RT-PCR NOT DETECTED (NOT DETECTED)
== END 2023-08-22 17:20 | disposition home or self-care (01) ==
PROVIDERS: Emergency Provider Emergency Medicine
DX: J12.2 Parainfluenza virus pneumonia (principal); R06.02 Shortness of breath; R07.9 Chest pain, unspecified; R05.9 Cough, unspecified; R51.9 Headache, unspecified; Z03.818 Encounter for observation for suspected exposure to other biological agents ruled out
CPT/HCPCS: 0241U; 36415; 71046; 71275; 80048; 80076; 83605; 83880; 84145; 84484; 85025; 85652; 86140; 86617; 86618; 87040; 87468; 87469; 87478; 87484; 87633; 87798; 93005; 96361; 96365; 96375; 99284; J0456; J1100; J1885; J2405; Q9967

== ENCOUNTER → 2023-08-22 09:59 | Outpatient (BNV) | payer OTHER, SELFPAY | PROVIDERS: Emergency Provider Emergency Medicine; Visit Provider Internal Medicine Cardiovascular Disease | DX: R07.9 Chest pain, unspecified (principal) | CPT/HCPCS: 93010 ==

== ENCOUNTER 2023-10-04 12:11 | Emergency (ER) | payer OTHER, SELFPAY ==
--- NOTE | ~2023-10-04 | XR_ITS ---
EXAMINATION: XR CHEST CLINICAL INFORMATION: History of pneumonia, persistent symptoms. Covid test negative. Cough and right-sided chest pain. COMPARISON: 08/22/2023 TECHNIQUE: 2 views of the chest were obtained. FINDINGS: No acute abnormalities compared to prior radiographs from 08/22/2023. A small linear streaky opacity previously present in the anterior segment of the right upper lobe has resolved. No evidence of airspace disease or pleural effusion. Cardiac silhouette has normal size and contour. The pulmonary vascular pattern is normal. Mild spondylosis of the thoracic spine. There is intact appearance of anterior fusion hardware of the partially visualized cervical spine. XR/XR chest 2V IMPRESSION: No radiographic evidence of pneumonia.
[2023-10-04 12:23] VITALS: BP 158/78; PULSE 77; RESP 20; TEMP 36.6; O2SAT 99; BMI 26.6
--- NOTE | 2023-10-04 12:23 | ED_ITS ---
HPI - URI/Sore Throat General Chief Complaint: Upper Respiratory Symptoms Stated Complaint: Cough Time Seen by Provider: 10/04/23 12:50 Source: patient Mode of arrival: ambulatory Limitations: no limitations History of Present Illness ED Provider: Nidhi Jacinto PA-C HPI Narrative: Patient is a 57 year old assigned female at with a history of a recent pneumonia diagnosis and even more recent exposure to COVID-19 positive individuals, presenting to the emergency department today with right sided chest wall pain and cough. Patient states that she was recently diagnosed with pneumonia that was seen on a chest CT and given antibiotics. Patient states that she was home, doing better, and then began to feel unwell again. Patient states that the pain in her right upper chest / chest wall is similar to what she felt when she had pneumonia and that is what she is concerned about again today. MD elicited complaint: cough and other (right upper chest pain) Pertinent past history: pneumonia Onset (ago): day(s) Associated symptoms: cough Related Data Previous Rx's ?Medication ?Instructions ?Recorded doxycycline monohydrate 100 mg 100 mg PO BID #14 caps 06/06/20 capsule omeprazole magnesium 20 mg 20 mg PO BID #60 tabs 01/10/21 tablet,delayed release (Prilosec OTC) azithromycin 250 mg tablet 250 mg PO DAILY 4 days #4 tabs 08/22/23 prednisone 20 mg tablet 40 mg (2 x 20 mg) PO DAILY 4 days 08/22/23 #8 tabs doxycycline hyclate 100 mg tablet 100 mg PO BID 7 days #14 tabs 10/04/23 Allergies Allergy/AdvReac Type Severity Reaction Status Date / Time Penicillins Allergy Anaphylaxis Verified 10/04/23 12:25 Review of Systems 2 Constitutional: Constitutional: Reports no additional constitutional complaints Eyes: Eyes: Reports no additional eye complaints Cardiovascular: Cardiovascular: Reports no additional cardiovascular complaints, Reports chest pain (right upper), Denies lightheadedness, Denies Loss of Consciousness and Denies dyspnea Respiratory: Respiratory: Reports no additional respiratory complaints, Reports cough and Denies dyspnea Gastrointestinal: Gastrointestinal: Reports no additional gastrointestinal complaints Musculoskeletal: Musculoskeletal: Reports no additional musculoskeletal complaints Psychiatric: Psychiatric: Reports no additional psychiatric complaints Endocrine: Endocrine: Reports no additional endocrine complaints Hematologic/Lymphatic: Hematologic/Lymphatic: Reports no additional hematologic/lymphatic complaints Allergic/Immunologic: Allergic/Immunologic: Reports no additional allergic/immunologic complaints PMFSH Past Medical History Attestation statement: The following information was validated with the patient. Source: old records reviewed and nursing notes reviewed Medical History Myxoma Osteomyelitis of spine Social History Social History Alcohol intake: current Alcohol intake frequency: holidays/special occasions only Patient Tobacco Use Status: Never used Tobacco Smoked in Last 30 Days: No Advance Directives: No Advance Directives Information Provided: Yes Patient : No Physical Exam 2 Vital Signs: Vital Signs: Last Vital Signs Temp 97.9 F 10/04/23 14:41 Pulse 77 10/04/23 14:41 Resp 20 10/04/23 14:41 BP 158/78 H 10/04/23 14:41 Pulse Ox 99 10/04/23 14:41 O2 Del Method Room Air 10/04/23 14:41 BMI result Body Mass Index 26.6 Const: General: cooperative, no acute distress, alert and awake Nutritional Appearance: well nourished Orientation/consciousness: patient oriented x3 Limitations: no limitations HEENT: Head: Yes normal to inspection and Yes atraumatic Ears: hearing grossly normal bilaterally and external ears normal General nose exam: Normal external nose present, no nasal discharge noted and no epistaxis Face and sinus: Yes normal facial exam, No abrasion and No laceration Mouth: Normal oral and palatal mucosa present, no drooling and no muffled voice Eyes: General: appearance normal, both eyes and all related structures P eriorbital: periorbital findings normal Eyelids: Yes eyelids normal C onjunctivae: conjunctivae normal Pupils: Equal, round and reactive pupils present EOM: EOMs intact bilaterally Neck: Neck: Yes normal visual inspection, Yes full ROM and Yes no lymphadenopathy Resp: Effort & Inspection: normal respiratory effort and able to speak in complete sentences GI: Inspection: Yes normal to inspection Neuro: General: patient oriented x3 and moves all extremities Cranial nerves: Yes Equal, round and reactive pupils present Cognition (Neuro): n ormal cognition Extrem: General: Yes normal to inspection, Yes full ROM and Yes capillary refill normal Psych: Appearance: grossly normal Mental Status: mental status grossly normal Affect: normal affect Attitude: cooperative Thought process: N ormal thought process present Thought content: Normal thought content present Insight: Good insight present (Psych) Course Course Course Narrative: This is a Rapid Medical Exam performed in triage by Jyoti Tolbert PA-C. Full HPI, ROS and PE to be performed by primary ED provider. 57 year-old F w/ PMHx myxoma removal 2009, prior osteomyelits iatrogenic of the spine, PNA, presenting to the ED c/o rhinorrhea, sore throat, dry cough x6 days w/assoc R sided chest pain, SOB, fatigue & feeling like im drowning . & son COVID+, patient testing negative. PE: talking in complete sentences, no resp distress Plan: EKG, labs, CXR, vriral testing Medications Administered Discontinued Medications Generic Name Dose Route Start Last Admin Trade Name Freq PRN Reason Stop Dose Admin Ketorolac Tromethamine 15 mg 10/04/23 14:24 10/04/23 14:34 Ketorolac Tromethamine 15 Mg/Ml Vial IM 10/04/23 14:25 15 mg ONCE ONE Administration Medical Decision Making Medical Decision Making MDM Narrative: Patient is a 57 year old assigned female at with a history of recent pneumonia and COVID-19 exposure presenting to the emergency department today with right upper chest pain and cough. Patient's physical exam was as noted in the physical exam portion of this note. Patient's blood work was unremarkable. Patient's EKG was unremarkable. Patient's chest x-ray showed no acute process. I explained my physical exam findings as well as all test results to the patient. I answered all questions asked by the patient. The patient and I decided, through shared decision making, to treat the patient for a possible pneumonia given her recent history and symptoms. I stressed the importance of the patient taking her medication as directed (either prescribed or as the over the counter packaging recommends). I stressed the importance of the patient following up with her primary care provider. I stressed the importance of the patient returning to the emergency department immediately if her symptoms were to worsen or if she were to develop any dizziness, shortness of breath, difficulty breathing, chest pain, blurry vision, loss of vision, nausea, vomiting, abdominal pain, fever, chills, back pain, or any other complaints. Patient verbalized agreement and understanding with this treatment plan and discharge. Differential Diagnosis Differential Diagnoses: The differential diagnosis associated with the presentation includes Chest wall pain Pleurisy Costochondritis Pneumonia COVID-19 Influenza RSV Admission/Observation Consideration of admission/observation: Escalation of care including admission/observation considered Patient would have been admitted to the hospital had her work up had any findings where hospital admission was appropriate and her clinical presentation warranted hospital admission. Lab Data [facility] Lab Attestation statement: I reviewed the patient's lab results. My interpretation of these results are in the [facility] Rationale portion of this note. 10/04/23 12:48 10/04/23 12:48 Labs: Lab Results 10/04/23 Range/Units 12:48 WBC 10.0 (4.8-10.8) X10*3/uL RBC 4.56 (4.20-5.50) X10*6/uL Hgb 14.4 (12.0-16.0) g/dl Hct 40.0 (37.0-47.0) % MCV 87.7 (80.0-98.0) fL MCH 31.6 (27.0-33.0) pg MCHC 36.0 H (31.0-35.0) g/dl RDW 13.1 (11.0-16.0) % Plt Count 281 (160-400) X10*3/uL MPV 10.5 (9.4-12.3) fL Immature Gran % (Auto) 0.3 (0.0-0.4) % Neut % (Auto) 73.0 (45-73) % Lymph % (Auto) 18.2 L (20-40) % Villalba % (Auto) 5.4 (2-11) % Eos % (Auto) 2.5 (0-4) % Baso % (Auto) 0.6 (0-2) % Lymph # (Auto) 1.8 (1.2-4.9) X10*3/uL Villalba # (Auto) 0.5 (0.1-1.2) X10*3/uL Eos # (Auto) 0.3 (0.0-0.4) X10*3/uL Baso # (Auto) 0.1 (0.0-0.2) X10*3/uL Abs Immat Gran (auto) 0.03 (0.00-0.03) X10*3/uL Absolute Neuts (auto) 7.3 (2.0-8.3) x10*3/uL Absolute Nucleated RBC 0.000 (0.0-0.012) X10*3/uL Nucleated RBC % (auto) 0.0 (0.0-0.2) /100WBC PT 11.9 (11.1-13.3) SEC INR 1.0 (0.9-1.1) Sodium 141 (135-145) mmol/L Potassium 4.0 (3.3-5.1) mmol/L Chloride 106 (96-108) mmol/L Carbon Dioxide 24 (22-29) mmol/L Anion Gap 15 (12-20) BUN 14 (9-16) mg/dL Creatinine 0.87 (0.5-1.4) mg/dL Estim Creat Clear Calc 78.2 Estimated GFR > 60 Random Glucose 111 (60-115) mg/dL Calcium 9.1 (8.4-10.2) mg/dL Magnesium 2.1 (1.6-2.6) mg/dL Total Bilirubin 0.4 (0.0-1.0) mg/dL Direct Bilirubin 0.1 (0.0-0.5) mg/dL AST 25 (5-31) U/L ALT 18 (0-31) U/L Alkaline Phosphatase 91 (39-117) U/L Troponin I High Sens 3.6 (<3.5-17.0) ng/L B-Natriuretic Peptide 57 (<100) pg/mL Total Protein 7.9 (6.5-8.0) g/dL Albumin 4.3 (3.5-5.0) g/dL Influenza Type A (PCR) NEGATIVE (Negative) Influenza Type B (PCR) NEGATIVE (Negative) RSV RNA Qual (PCR) NEGATIVE (Negative) SARS-CoV-2 RNA (RT-PCR) NEGATIVE (Negative) Independent Interpretation I performed an independent interpretation of an: EKG and Plain X-Ray Interpretation: My interpretation is in agreement with the radiologist's impression of this imaging study. - EXAMINATION: XR CHEST CLINICAL INFORMATION: History of pneumonia, persistent symptoms. Covid test negative. Cough and right-sided chest pain. COMPARISON: 08/22/2023 TECHNIQUE: 2 views of the chest were obtained. FINDINGS: No acute abnormalities compared to prior radiographs from 08/22/2023. A small linear streaky opacity previously present in the anterior segment of the right upper lobe has resolved. No evidence of airspace disease or pleural effusion. Cardiac silhouette has normal size and contour. The pulmonary vascular pattern is normal. Mild spondylosis of the thoracic spine. There is intact appearance of anterior fusion hardware of the partially visualized cervical spine. XR/XR chest 2V IMPRESSION: No radiographic evidence of pneumonia. Dictated By: Chaparro Caballero MD Signed By: Electronically signed by Chaparro Caballero MD 10/04/23 1359 - Vent. Rate: 079 BPM Atrial Rate: 079 BPM P-R Int: 134 ms QRS Dur: 080 ms QT Int: 368 ms P-R-T Axes: 067 044 063 degrees QTc Int: 421 ms Normal sinus rhythm Normal ECG When compared with ECG of 22-AUG-2023 10:01, No significant change was found DD/ [id number] Radiology Impression Discussion of test interpretation with radiology: I have reviewed the radiologist's reading. Prescription Management I considered prescription management with: Antibiotic (patient prescribed an antibiotic for possible PNA) Discharge Plan Discharge Clinical Impression: Pneumonia Patient Disposition: Home, Self-Care Instructions: Pneumonia (ED) Additional Instructions: Your chest x-ray showed no acute process however, given your recent history of pneumonia and concern for continued/recurrent infection - we are treating it with Doxycycline. Please take it as prescribed. Please avoid sun exposure while on it. Follow up with your primary care provider. Return to the emergency department immediately if your symptoms worsen or if you develop any dizziness, shortness of breath, difficulty breathing, chest pain, blurry vision, loss of vision, nausea, vomiting, abdominal pain, fever, chills, back pain, or any other complaints. Prescriptions: New doxycycline hyclate 100 mg tablet 100 mg PO BID 7 Days Qty: 14 0RF No Action doxycycline monohydrate 100 mg capsule 100 mg PO BID Qty: 14 0RF omeprazole magnesium [Prilosec OTC] 20 mg tablet,delayed release (DR/EC) 20 mg PO BID Qty: 60 0RF azithromycin 250 mg tablet 250 mg PO DAILY 4 Days Qty: 4 0RF Rx Instructions: start on day 2 of therapy prednisone 20 mg tablet 40 mg PO DAILY 4 Days Qty: 8 0RF Referrals: Lili Portillo [employer] [Primary Care Provider] - Interventions: ED Discharge Assessment Last Done: 10/04/23 14:41 Discharge Date/Time: 10/04/23 14:42 Print Language: Bermudian
--- NOTE | 2023-10-04 12:26 | ECG_ITS ---
Test Reason : sob Blood Pressure : / mmHG Vent. Rate : 079 BPM Atrial Rate : 079 BPM P-R Int : 134 ms QRS Dur : 080 ms QT Int : 368 ms P-R-T Axes : 067 044 063 degrees QTc Int : 421 ms Normal sinus rhythm Normal ECG When compared with ECG of 22-AUG-2023 10:01, No significant change was found Referred By: Jyoti Tolbert Electronically Signed By:BEATRICE MORALES MD
[2023-10-04 12:54] VITALS: BP 158/78; PULSE 77; RESP 20; TEMP 36.6; O2SAT 97; O2SAT 99
[2023-10-04 12:55] LABS: MANUAL DIFF FLAG NO
[2023-10-04 13:02] LABS: Basophils Absolute Auto 0.1 X10*3/uL (0.0-0.2); Basophils Percent Auto 0.6 % (0-2); Eosinophils Absolute Auto 0.3 X10*3/uL (0.0-0.4); Eosinophils Percent Auto 2.5 % (0-4); Hemoglobin 14.4 g/dl (12.0-16.0); Imm Gran Abs Auto 0.03 X10*3/uL (0.00-0.03); Imm Gran Pct Auto 0.3 % (0.0-0.4); Lymphocytes Absolute Auto 1.8 X10*3/uL (1.2-4.9); Lymphocytes Percent Auto 18.2 % (20-40); Mean Corpuscular Hemoglobin 31.6 pg (27.0-33.0); Mean Corpuscular Volume 87.7 fL (80.0-98.0); Mean Platelet Volume 10.5 fL (9.4-12.3); Monocytes Absolute Auto 0.5 X10*3/uL (0.1-1.2); Monocytes Percent Auto 5.4 % (2-11); Neutrophils Absolute Auto 7.3 x10*3/uL (2.0-8.3); Platelet Count 281 X10*3/uL (160-400); Red Blood Count 4.56 X10*6/uL (4.20-5.50); Red Cell Distribution Width 13.1 % (11.0-16.0)
[2023-10-04 13:04] LABS: Prothrombin Time 11.9 SEC (11.1-13.3)
[2023-10-04 13:21] LABS: Alanine Aminotransferase 18 U/L (0-31); Albumin Level 4.3 g/dL (3.5-5.0); Alkaline Phosphatase 91 U/L (39-117); Anion Gap 15 (12-20); Aspartate Amino Transferase 25 U/L (5-31); Bilirubin Direct 0.1 mg/dL (0.0-0.5); Bilirubin Total 0.4 mg/dL (0.0-1.0); Blood Urea Nitrogen 14 mg/dL (9-16); Calcium 9.1 mg/dL (8.4-10.2); Carbon Dioxide 24 mmol/L (22-29); Chloride 106 mmol/L (96-108); Creatinine Clr Calc Pharmacy 78.2; Estimated Glomerular Filt Rate > 60; Glucose Random 111 mg/dL (60-115); Magnesium 2.1 mg/dL (1.6-2.6); Sodium 141 mmol/L (135-145); Total Protein 7.9 g/dL (6.5-8.0)
[2023-10-04 13:23] LABS: B Type Natriuretic Peptide 57 pg/mL (<100)
[2023-10-04 13:27] LABS: Troponin-I High Sensitivity 3.6 ng/L (<3.5-17.0)
[2023-10-04 13:33] LABS: Influenza A PCR NEGATIVE (Negative); Influenza B PCR NEGATIVE (Negative); Resp Syncy Virus RNA Qual PCR NEGATIVE (Negative); SARS COV2 PCR INHOUSE NEGATIVE (Negative)
[2023-10-04] MEDS: Ketorolac Tromethamine 15 MG/ML VIAL IM (14:34)
[2023-10-04 14:41] VITALS: BP 158/78; PULSE 77; RESP 20; TEMP 36.6; O2SAT 99
== END 2023-10-04 14:42 | disposition home or self-care (01) ==
PROVIDERS: Physician Assistant; Emergency Provider Emergency Medicine Emergency Medical Services; PCP Nurse Practitioner Family
DX: J18.9 Pneumonia, unspecified organism (principal); R07.9 Chest pain, unspecified; R05.9 Cough, unspecified; Z03.818 Encounter for observation for suspected exposure to other biological agents ruled out
CPT/HCPCS: 0241U; 71046; 80048; 80076; 83735; 83880; 84484; 85025; 85610; 93005; 96374; 99284; 99285; J1885

== ENCOUNTER → 2023-10-04 12:26 | Outpatient (BNV) | payer OTHER, SELFPAY | PROVIDERS: Emergency Provider Emergency Medicine Emergency Medical Services; PCP Nurse Practitioner Family; Visit Provider Internal Medicine Cardiovascular Disease | DX: R06.02 Shortness of breath (principal) | CPT/HCPCS: 93010 ==